=== PATIENT | male | born 2005 | race Caucasian/White ===

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

== ENCOUNTER 2024-01-25 09:42 | Emergency (ER) | payer BC, SELFPAY ==
--- NOTE | ~2024-01-25 | XR_ITS ---
EXAMINATION: XR chest 2V DATE: 01/25/2024 10:58 INDICATION: Cough TECHNIQUE: PA and lateral views of the chest were obtained. COMPARISON: None FINDINGS: The lungs are clear with no focal airspace opacities, pulmonary edema, pleural effusion or pneumothor ax. The cardiomediastinal silhouette is normal. Visualized bones and soft tissues are unremarkable. IMPRESSION: 1. No acute cardiopulmonary disease. Reviewed, dictated and finalized at location A. NQUENT NOTICE MACHINE OPERATOR
[2024-01-25 09:58] VITALS: BP 112/81; PULSE 54; RESP 18; TEMP 37.2; O2SAT 100
--- NOTE | 2024-01-25 10:43 | ED.URI ---
HPI - URI/Sore Throat General Chief Complaint: Upper Respiratory Infection Stated Complaint: Cough/Headaches Time Seen by Provider: 01/25/24 10:43 Source: patient Mode of arrival: ambulatory Limitations: no limitations History of Present Illness HPI Narrative: 18 yo M presents with Mom with c/o cough, chest congestion for 3 wks. Was seen at at [facility] and given augmentin, told had bacterial infection due to symptoms duration but was not examined. 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 Has taken 2 doses. Mom wants checked for pneumonia. Denies chest pain, shortness of breath. No respiratory distress. Afebrile. All systems reviewed and negative except as noted above. Related Data Home Medications ?Medication ?Instructions ?Recorded ?Confirmed ?Last Taken ?Type amoxicillin 875 mg-potassium tablet 01/25/24 Unknown History clavulanate 125 mg tablet Allergies Allergy/AdvReac Type Severity Reaction Status Date / Time No Known Allergies Allergy Unverified 01/25/24 10:00 Review of Systems Review of Systems: CONSTITUTIONAL: Denies fever, chills, or sweats. Reports fatigue. EYES: Denies visual changes, redness, or discharge. ENT: Denies rhinorrhea, congestion, sore throat, or otalgia. CARDIOVASCULAR: Denies chest pain, palpitations, or edema. RESPIRATORY: Reports cough. Denies dyspnea. GASTROINTESTINAL: Denies abdominal pain, nausea, vomiting, or diarrhea. GENITOURINARY: Denies dysuria or hematuria. SKIN: Denies rash or itching. MUSCULOSKELETAL: Denies back pain, joint pain, or myalgia. NEUROLOGIC: Denies headache, numbness, or weakness. PSYCHIATRIC: Denies anxiety or depression. All other systems reviewed are negative, except as documented in HPI. [facility] Comments At time of signature, agree with nursing past medical, surgical, social and family history. There is no relevant family history pertinent to the presenting complaint. Exam Narrative: GENERAL: This is a well-nourished, well-developed patient, in no apparent distress. HEAD: normocephalic, atraumatic. EYES: PERRL. Sclera clear/white. Vision is grossly intact. EARS: External ears normal, auditory canals clear and without drainage, TMs normal without perforation. Hearing grossly intact. NOSE: External nose normal with no obvious nasal discharge, nares without redness, no rhinorrhea. THROAT: Mucous membranes moist, posterior pharynx clear. NECK: Neck supple, non-tender without lymphadenopathy, masses or thyromegaly. CARDIOVASCULAR: Regular rate and rhythm without murmurs, gallops, or rubs. RESPIRATORY: Decreased to lower lung miranda otherwise clear. Breath sounds equal bilaterally. No wheezes, rales, or rhonchi. SKIN: warm, Dry, intact with no suspicious lesions or rash, good texture and turgor. NEURO: awake, alert, and oriented to person, place and time. There were no obvious focal neurologic abnormalities. EXTREMITIES: No joint tenderness, effusion, or edema noted. Course Course Level of Care: Express Care Visit Vital Signs Vital signs: Vital Signs Temperature 37.2 C 01/25/24 09:58 Pulse Rate 54 L 01/25/24 09:58 Respiratory Rate 18 01/25/24 09:58 Blood Pressure 112/81 01/25/24 09:58 Pulse Oximetry 100 01/25/24 09:58 Oxygen Delivery Room Air 01/25/24 09:58 Temperature 37.2 C 01/25/24 09:58 Pulse Rate 54 L 01/25/24 09:58 Respiratory Rate 18 01/25/24 09:58 Blood Pressure 112/81 01/25/24 09:58 Pulse Oximetry 100 01/25/24 09:58 Oxygen Delivery Room Air 01/25/24 09:58 Reviewed MDM - URI/Sore Throat MDM Narrative Medical decision making narrative: Chest x-ray negative for pneumonia. Will treat patient for bronchitis with steroids, albuterol inhaler. Discussed plan of care with patient. Is well-appearing, nontoxic. Patient is aware of diagnosis, understands and agrees to treatment plan. Anticipatory guidance given. Patient agrees to follow-up as directed and is aware of reasons to seek care at the emergency department. Portions of this record may have been created with voice recognition software Differential Diagnosis Differential diagnosis: Likely upper respiratory infection, sinusitis, viral infection, bronchitis and other (Pneumonia) Imaging Data My impression: Agree with radiologist Radiologist's impression: EXAMINATION: XR chest 2V DATE: 01/25/2024 10:58 INDICATION: Cough TECHNIQUE: PA and lateral views of the chest were obtained. COMPARISON: None FINDINGS: The lungs are clear with no focal airspace opacities, pulmonary edema, pleural effusion or pneumothorax. The cardiomediastinal silhouette is normal. Visualized bones and soft tissues are unremarkable. IMPRESSION: 1. No acute cardiopulmonary disease. Discharge Plan Discharge Clinical Impression: Acute bronchitis Patient Disposition: Home, Self-Care Condition: Stable Instructions: Acute Bronchitis (ED) Additional Instructions: Your chest x-ray was normal today. Bronchitis is a virus and cough may last up to 6 weeks. Take medications as prescribed. Take [id number] Mucinex as directed on packaging. Follow-up with your primary care physician if symptoms are not improving. Patient Language: Beninese Prescriptions: New (DME) Aerochamber Plus Z Stat Spacer See Rx Instructions .Route Qty: 1 0RF Rx Instructions: As directed benzonatate 200 mg capsule 200 mg PO TID PRN (Reason: cough) Qty: 20 0RF prednisone 20 mg tablet 40 mg PO DAILY 5 Days Qty: 10 0RF albuterol sulfate 90 mcg/actuation HFA aerosol inhaler 2 puff inhalation Q4-6H PRN (Reason: shortness of breath or wheezing) Qty: 8.5 0RF No Action amoxicillin-pot clavulanate 875-125 mg tablet Follow-up/Referrals: Victoriano Bowie MD [Primary Care Provider] - Time of Disposition: 11:10
== END 2024-01-25 11:18 | disposition home or self-care (01) ==
PROVIDERS: Emergency Provider Nurse Practitioner Family; PCP Pediatrics
DX: J20.9 Acute bronchitis, unspecified (principal)
CPT/HCPCS: 71046; 99213; G0463

== ENCOUNTER 2024-06-21 19:19 | Emergency (ER) | payer BC, SELFPAY ==
[2024-06-21 19:28] VITALS: BP 126/76; PULSE 89; RESP 16; TEMP 37.7; O2SAT 98
--- NOTE | 2024-06-21 19:35 | ED_ITS ---
HPI - URI/Sore Throat General Chief Complaint: Upper Respiratory Infection Stated Complaint: COUGH/RUNNY NOSE/LIGHT HEADED/NAUSEA Time Seen by Provider: 06/21/24 19:30 Source: patient and RN notes reviewed Mode of arrival: ambulatory Limitations: no limitations History of Present Illness HPI Narrative: 19-year-old male presents Express Care complaining of upper respiratory symptoms for approximately 10 days. Thought his symptoms were allergies reporting a lot of congestion and runny nose. Patient ran out of his [employer] while he was at college has not restarted since he has returned home after finals. Patient states today he woke up with worsening congestion, thick yellow nasal discharge, lightheadedness, cough, and nausea. Patient reports having a dry nonproductive cough that is worse at night. Patient denies any fevers, body aches, chills, syncope, chest pain, shortness of breath. Patient states the lightheadedness feels like he stuffy or a pressure in his head or like his head feels like a balloon. Patient denies any dizziness, or lightheadedness with position changes. Related Data Allergies Allergy/AdvReac Type Severity Reaction Status Date / Time No Known Allergies Allergy Verified 06/21/24 19:24 Review of Systems Review of Systems: CONSTITUTIONAL: Denies fever, chills, or sweats. EYES: Denies visual changes, redness, or discharge. ENT: Denies sore throat, or otalgia. Positive for congestion or rhinorrhea. CARDIOVASCULAR: Denies chest pain, palpitations, syncope, or edema. Positive for lightheadedness. RESPIRATORY: Positive for dry cough. Negative for dyspnea dyspnea. GASTROINTESTINAL: Denies abdominal pain, nausea, vomiting, or diarrhea. GENITOURINARY: Denies dysuria or hematuria. SKIN: Denies rash or itching. MUSCULOSKELETAL: Denies back pain, joint pain, or myalgia. NEUROLOGIC: Denies headache, numbness, or weakness. PSYCHIATRIC: Denies anxiety or depression. All other systems reviewed are negative, except as documented in HPI. PMF[facility] Comments At the time of my signature, I reviewed and agree with the nursing past medical, surgical, social, and family history. There is no relevant family history pertinent to the patient complaint. Exam Narrative: GENERAL: This is a well-nourished, well-developed adult, in no apparent distress. They are non ill-appearing, nontoxic appearing. HEAD: normocephalic, atraumatic. EYES: Sclera clear/white. Conjunctiva normal. Vision is grossly intact. Extraocular movements intact. Pupils PERRLA. No nystagmus. EARS: External ears normal, auditory canals clear and without drainage, TMs normal without perforation. Hearing grossly intact. NOSE: External nose normal with no obvious nasal discharge, nasal turbinates erythematous with thick yellow discharge. THROAT: Mucous membranes moist, posterior pharynx without erythema or swelling. Uvula midline. Postnasal drip present NECK: Neck supple, non-tender without lymphadenopathy, masses or thyromegaly. CARDIOVASCULAR: Regular rate and rhythm without murmurs, gallops, or rubs. RESPIRATORY: Clear to auscultation. Breath sounds equal bilaterally. No wheezes, rales, or rhonchi. SKIN: warm, Dry, intact with no suspicious lesions or rash, good texture and turgor. NEURO: awake, alert, and oriented to person, place and time. There were no obvious focal neurologic abnormalities. EXTREMITIES: No joint tenderness, effusion, or edema noted. BACK: Nontender without deformity. No CVA tenderness. Course Course Emergency Course: Portions of this record may have been created with voice recognition software Level of Care: Express Care Visit Vital Signs Vital signs: Vital Signs Oxygen Delivery Room Air 06/21/24 19:25 Temperature 99.9 F H 06/21/24 19:28 Pulse Rate 89 06/21/24 19:28 Respiratory Rate 16 06/21/24 19:28 Blood Pressure 126/76 06/21/24 19:28 Pulse Oximetry 98 06/21/24 19:28 Oxygen Delivery Room Air 06/21/24 19:25 Reviewed MDM - URI/Sore Throat MDM Narrative Medical decision making narrative: Patient's lightheadedness is likely related to sinus pressure and congestion. Patient denies any syncope or near-syncope events. Patient denies any lightheadedness or dizziness with position change. Given patient's worsening symptoms is likely that he has a bacterial sinusitis. Will treat empirically with Augmentin. Will prescribe Tessalon Perles as needed for cough and Flonase as needed for congestion. Discussed physical exam findings. Advised supportive measures and signs/symptoms to go to the ER. Pt is appropriate for outpt treatment and f/u. Differential Diagnosis Differential diagnosis: Likely upper respiratory infection, sinusitis and viral infection Critical Care Time Critical Care Time Critical Care Time: No Discharge Plan Discharge Clinical Impression: Sinusitis Qualifiers: Sinusitis location: unspecified location Chronicity: acute Recurrence: non- recurrent Qualified Code(s): J01.90 - Acute sinusitis, unspecified Patient Disposition: Home Condition: Stable Instructions: Antibiotic Form, Sinusitis (ED) Additional Instructions: Take the antibiotics as directed and complete the course even if you start to feel better. You may use a Neti pot saline rinse 3 times a day luke warm distilled water Take Tessalon Perles as directed for cough. Continue to take Tylenol or Motrin for pain. Use a humidifier or vaporizer at night. Drink plenty of water. 8-10 glasses per day. Use flonase 2 times per day for 5 days then as needed Take mucinex 2 times per day and be sure to take with 8oz of water. Follow up with Primary provider 3-5 days. Detailed develops any worsening symptoms, or difficulty breathing, chest pain, or syncope, or any other concerns please go to the ER immediately. Patient Language: Israeli Prescriptions: New benzonatate 100 mg capsule 100 mg PO TID PRN (Reason: cough) Qty: 20 0RF fluticasone propionate [Flonase Allergy Relief] 50 mcg/actuation spray,susp ension 2 spray intranasal DAILY Qty: 1 0RF Rx Instructions: administer into each nostril amoxicillin-pot clavulanate 875-125 mg tablet 1 tablet PO Q12H 7 Days Qty: 14 0RF No Action (DME) Aerochamber Plus Z Stat Spacer See Rx Instructions .Route Qty: 1 0RF Rx Instructions: As directed Follow-up/Referrals: Victoriano Bowie MD [Primary Care Provider] - Time of Disposition: 19:37
== END 2024-06-21 19:41 | disposition home or self-care (01) ==
PROVIDERS: PCP Pediatrics
DX: J01.90 Acute sinusitis, unspecified (principal)
CPT/HCPCS: 99213; G0463